=== PATIENT | female | born 2005 | race Hispanic/Latino ===

== ENCOUNTER 2023-11-24 18:41 | Day surgery (SDC) | payer OTHER ==
[2023-11-24 19:30] VITALS: BMI 27.3
[2023-11-24] MEDS ORDERED: hydrALAZINE 20 MG/ML VIAL SLOW IVP PRN (19:41)
[2023-11-24 20:57] LABS: Bilirubin Neg (Negative); Blood, Urine Negative (Negative); Clarity Slightly Cloudy (Clear); Glucose, Urine (Dipstick) Normal (Negative); Ketone, Urine Negative (Negative); Leukocyte 100 (Negative); Nitrite Negative (Negative); Protein, Urine (Dipstick) 15 mg/dl (Neg-Trace)
[2023-11-24 21:15] LABS: Bacteria/HPF 4+ HPF (None Seen); CAUTI Indications for Culture Pelvic or flank pain; Mucous/LPF 1+ LPF (<2+); RBC/HPF None Seen HPF (0-3)
[2023-11-24 21:16] LABS: Urine Culture Reflex No No
[2023-11-24] MEDS: cefTRIAXone (ROCEPHIN) 1 GM VIAL IM SCH (21:56)
[2023-11-24] MEDS: Sterile Water 10 ML ONE (21:57)
== END 2023-11-24 22:03 | disposition home or self-care (01) ==
LOC: CSHLD/OP 18:41
PROVIDERS: ATTEND Family Medicine
DX: O23.42 Unspecified infection of urinary tract in pregnancy, second trimester (principal); N39.0 Urinary tract infection, site not specified; O34.211 Maternal care for low transverse scar from previous cesarean delivery; Z79.899 Other long term (current) drug therapy; Z3A.27 27 weeks gestation of pregnancy
CPT/HCPCS: 81001; 96372; 99283; J0696